=== PATIENT | male | born 2000 | race Caucasian/White ===

== ENCOUNTER 2021-10-01 15:58 | Emergency (ER) | payer OTHER, SELFPAY ==
[2021-10-01 16:14] VITALS: BP 120/54; PULSE 63; RESP 19; TEMP 37.1; O2SAT 97; BMI 23.7
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
--- NOTE | 2021-10-01 16:22 | ECG_ITS ---
Test Reason : medical clearance Blood Pressure : / mmHG Vent. Rate : 065 BPM Atrial Rate : 065 BPM P-R Int : 188 ms QRS Dur : 098 ms QT Int : 388 ms P-R-T Axes : 044 094 022 degrees QTc Int : 403 ms Normal sinus rhythm Rightward axis Borderline ECG No previous ECGs available Referred By: Shana Falk Electronically Signed By:DELGADO STEPHEN
--- NOTE | 2021-10-01 16:46 | MHC.CARE ---
Pt was sent via [facility] 12 from [facility] for evaluation. Section 12a was initiated by Gabino Sams PsyD. CARE team will evaluate pt once he is medically cleared for assessment.
[2021-10-01 17:12] LABS: Amphetamine Screen Urine Not Detected (Not Detect); Barbiturates, Urine Not Detected (Not Detect); Benzodiazepines Screen Urine Not Detected (Not Detect); Cannabinoid Screen Urine Not Detected (Not Detect); Cocaine Screen Urine Not Detected (Not Detect); Fentanyl, urine Not Detected (Not Detect); Opiate Screen Urine Not Detected (Not Detect); Phencyclidine Screen Urine Not Detected (Not Detect)
[2021-10-01 17:14] LABS: COVID-19 Test Negative (Negative); IDNOW Serial# 16C4AD1C
[2021-10-01 17:45] LABS: MANUAL DIFF FLAG NO
[2021-10-01 17:46] LABS: Basophils Percent Auto 0.4 % (0-2); Eosinophils Absolute Auto 0.2 X10*3/uL (0.0-0.4); Eosinophils Percent Auto 3.6 % (0-4); Hematocrit 45.1 % (42.0-52.0); Hemoglobin 15.4 g/dl (14.0-18.0); Lymphocytes Absolute Auto 1.7 X10*3/uL (1.2-4.9); Lymphocytes Percent Auto 29.8 % (20-40); Mean Corpuscular HGB Conc 34.1 g/dl (31.0-36.0); Mean Corpuscular Hemoglobin 30.7 pg (27.0-33.0); Mean Platelet Volume 10.5 fL (9.4-12.4); Monocytes Absolute Auto 0.4 X10*3/uL (0.1-1.2); Monocytes Percent Auto 7.7 % (2-11); Neutrophils Absolute Auto 3.3 x10*3/uL (2.0-8.3); Neutrophils Percent Auto 58.5 % (45-73); Platelet Count 188 X10*3/uL (160-400); Red Blood Count 5.01 X10*6/uL (4.60-5.80); Red Cell Distribution Width 11.5 % (11.0-16.0); White Blood Count 5.6 X10*3/uL (4.8-10.8)
[2021-10-01 17:58] LABS: Ethanol < 10 mg/dL
[2021-10-01 18:02] LABS: Alanine Aminotransferase 38 U/L (0-40); Albumin Level 4.8 g/dL (3.5-5.0); Alkaline Phosphatase 83 U/L (39-117); Anion Gap 12 (12-20); Aspartate Amino Transferase 31 U/L (5-37); Bilirubin Total 0.4 mg/dL (0.0-1.0); Blood Urea Nitrogen 15 mg/dL (9-16); Calcium 9.7 mg/dL (8.4-10.2); Carbon Dioxide 28 mmol/L (22-29); Chloride 103 mmol/L (96-108); Creatinine Clr Calc Pharmacy 125.6; Estimated Glomerular Filt Rate > 60; Glucose Random 93 mg/dL (60-115); Potassium 4.5 mmol/L (3.3-5.1); Sodium 138 mmol/L (135-145); Total Protein 7.5 g/dL (6.5-8.0)
[2021-10-02 00:33] VITALS: BP 105/65; PULSE 80; RESP 19; TEMP 36.5; O2SAT 98
[2021-10-02] MEDS: Escitalopram Oxalate 10 MG TABLET PO ×2 (00:51→11:19)
[2021-10-02] MEDS: risperiDONE 2 MG TABLET PO ×2 (00:51→11:19)
--- NOTE | 2021-10-02 06:16 | PC.NURSE ---
Patient slept through the night, no distress observed/reported, behavior pleasant, medication compliant, care team assessed the patient pending disposition, VSS, will continue to monitor.
--- NOTE | 2021-10-02 07:31 | PC.NURSE ---
patient appears to remain asleep at present respirations are even and unlabored patient appears in no distress
--- NOTE | 2021-10-02 07:34 | PC.NURSE ---
patient appears to remain asleep at present respirations are even and unlabored patient appears in no distress
== END 2021-10-02 13:31 | disposition home or self-care (01) ==
PROVIDERS: Nurse Practitioner Family; Emergency Provider Emergency Medicine
DX: F32.A Depression, unspecified (principal); F41.9 Anxiety disorder, unspecified; R45.851 Suicidal ideations; F43.10 Post-traumatic stress disorder, unspecified; Z20.822 Contact with and (suspected) exposure to COVID-19; Z79.899 Other long term (current) drug therapy
CPT/HCPCS: 36415; 80053; 80307; 82077; 85025; 87635; 93005; 99284; 99285